=== PATIENT | female | born 1975 | race Caucasian/White ===

== ENCOUNTER → 2018-07-08 10:14 | Outpatient (CLI) | payer BC, SELFPAY ==
[2018-07-10 16:20] LABS: H. pylori Breath Test Negative (Negative)
== END ==
PROVIDERS: Visit Provider Physician Assistant
DX: R10.13 Epigastric pain (principal)
CPT/HCPCS: 83013

== ENCOUNTER → 2018-07-14 09:40 | Outpatient (CLI) | payer BC, SELFPAY ==
--- NOTE | 2018-07-14 09:45 | US_ITS ---
US abdomen limited History:Nausea, reflux, belching, pain Ordering Physician:Robert Campuzano MD Patient Age: 43 years Comparison:None Findings: Pancreas:Unremarkable. No obvious mass or abnormal fluid collection. No ductal dilatation Liver:No focal liver lesions demonstrated. Homogeneous echogenicity. No intrahepatic biliary ductal dilatation evident Right Kidney:Unremarkable. Normal size and echogenicity. No hydronephrosis Gallbladder:No gallstones, gallbladder wall thickening, pericholecystic fluid, or biliary dilatation. Impression:Negative gallbladder/right upper quadrant ultrasound
== END ==
PROVIDERS: PCP Family Medicine; Visit Provider Family Medicine
DX: R10.11 Right upper quadrant pain (principal)
CPT/HCPCS: 76705

== ENCOUNTER → 2018-08-17 10:13 | Outpatient (CLI) | payer BC, SELFPAY ==
--- NOTE | 2018-08-17 10:20 | NM_ITS ---
NM hepatobiliary wo pharm HISTORY: Right upper quadrant pain ITS.REASON: RUQ PAIN ORDERING PHYSICIAN: Radha Collins PATIENT AGE: 43 years COMPARISON: 07/14/2018 DOSE: 8.47 MCI TC Choletec INJ into RT ANT Fatty Meal Ensure FINDINGS: Homogeneous activity is present within the hepatic parenchyma. Activity is present in the gallbladder by 10 minutes. Activity is present in the small bowel by the fatty meal ingestion. The gallbladder ejection fraction is calculated to be 66% The patient did not report pain or other symptoms during fatty meal. IMPRESSION: Unremarkable hepatobiliary scan and gallbladder ejection fraction. No evidence of common or cystic duct obstruction with normal gallbladder ejection fraction
--- NOTE | 2018-08-17 10:35 | HMH.ITSHM ---
Current Home Medications as stated by this patient Angelic Grant or risk control representative. []LEXAPRO TROYTEC
== END ==
PROVIDERS: PCP Family Medicine; Visit Provider Nurse Practitioner Acute Care
DX: R10.11 Right upper quadrant pain (principal)
CPT/HCPCS: 78226; A9537

== ENCOUNTER → 2019-04-24 15:59 | Outpatient (CLI) | payer BC, SELFPAY ==
--- NOTE | 2019-04-24 16:09 | MM_ITS ---
PROCEDURE: MM DIG SCREENING MAMM BI W/CAD Patient Age:43Y CLINICAL INDICATION: Routine Screening Mammogram 43-year-old. No hormones no new complaints Family history: Mother with breast cancer age 47 COMPARISON: [facility] DIGITAL MAMM-SCREEN BILATERAL from 09/14/2010 [facility] DIG MAMM-SCREEN DEMI from 02/19/2013 [facility]B DIG MAMM-SCREEN DEMI from 02/13/2015 [facility]B DIG MAMM-SCREEN DEMI W/CAD from 08/27/2016 TECHNIQUE: Standard CC and MLO images were obtained. R2 CAD reviewed. Additional axillary CC views included bilaterally FINDINGS: . Heterogeneous moderately dense breast bilaterally.. Mammography somewhat limited breast of this carried however similar architecture and fibroglandular pattern to previous studies;. No new suspicious nor dominant mass. No suspicious calcifications.. CAD highlights no new areas of concern either. Bilateral follow-up 1 year recommended IMPRESSION: Stable mammogram. No new findings of significant concern Bilateral follow-up 1 year recommended Moderately dense breast BI-RAD Category: 2 Benign Finding(s) FOLLOW-UP: 1YR 1 Year Follow-up (A letter has been sent to the patient regarding results of the study.) Dictated by: Efren Champagne MD 04/27/2019 08:55 Signed by: <Electronically signed by Efren Champagne MD in [place]> 04/27/2019 08:55
== END ==
PROVIDERS: PCP Family Medicine; Visit Provider Nurse Practitioner Obstetrics & Gynecology
DX: Z12.31 Encounter for screening mammogram for malignant neoplasm of breast (principal)
CPT/HCPCS: 77067

== ENCOUNTER → 2021-02-20 13:27 | Outpatient (CLI) | payer BC, SELFPAY ==
--- NOTE | 2021-02-20 13:29 | MM_ITS ---
PROCEDURE INFORMATION: Exam: MG Screening 3D Mammography Exam date and time: 02/20/2021 1:29 PM Age: 45 years old Clinical indication: Encounter for screening mammogram for malignant neoplasm of breast TECHNIQUE: Imaging protocol: Screening tomosynthesis and 2D mammography including computer-aided detection (CAD) when performed. COMPARISON: 1. MG MM DIG SCREENING MAMM BI W/CAD 04/24/2019 4:26 PM 2. MG DMSB DIG MAMM-SCREEN DEMI W/CAD 08/27/2016 1:14 PM FINDINGS: MAMMOGRAPHY: Breast composition: The breast tissue is heterogeneously dense, which may obscure small masses. Mass: None. Architectural distortion: None. Calcifications: No suspicious calcifications. Asymmetric density: None. Skin thickening: None. Axillary adenopathy: None. IMPRESSION: No mammographic evidence of malignancy. Annual screening is recommended unless otherwise clinically indicated. ASSESSMENT: BI-RADS Category 1: Negative
== END ==
PROVIDERS: PCP Family Medicine; Visit Provider Family Medicine
DX: Z12.31 Encounter for screening mammogram for malignant neoplasm of breast (principal)
CPT/HCPCS: 77063; 77067

== ENCOUNTER → 2021-06-12 13:03 | Outpatient (CLI) | payer BC, SELFPAY ==
--- NOTE | 2021-06-12 13:19 | CT_ITS ---
PROCEDURE: CT ABDOMEN PELVIS WO/W CON CLINICAL INDICATION: ACUTE CYSTITIS W/ HEMATURIA, LT FLANK PAIN COMPARISON: CT ABDPELW CT ABD PELVIS W/ CONTRAST from 07/20/2013 TECHNIQUE: IV Contrast: 75ML Isovue 370 Oral Contrast None Axial images obtained with sagittal and coronal reformats. All CT scans at the facility use one or more dose reduction, viz: automated exposure control, ma/kV adjustment per patient size (including targeted exams where dose is matched to indication, i.e. head), or iterative reconstruction technique. FINDINGS: LOWER THORAX: No acute finding ABDOMEN & PELVIS: There are few scattered small hepatic hypodensities possibly due to cysts. Gallbladder is contracted and mildly thickened wall. The spleen, adrenal glands, and pancreas have an unremarkable appearance. No renal or ureteral calculi. No hydronephrosis. The kidneys demonstrate symmetric enhancement with no evidence of pyelonephritis. No bladder calculi. There is extensive amount of retained colonic feces throughout the colon with mild colonic distension.. The colon measures up to 5 mm in diameter in the transverse colon region no evidence of small-bowel obstruction. No free air apparent. No evidence of appendicitis. IMPRESSION: 1. No renal or ureteral calculi. No evidence of pyelonephritis. 2. Extensive amount of retained colonic feces throughout the colon. Dictated by: Jef Arce MD 06/12/2021 15:17 Jef Arce MD in [place] 06/12/2021 15:17
== END ==
PROVIDERS: PCP Family Medicine; Visit Provider Nurse Practitioner
DX: R10.9 Unspecified abdominal pain (principal); N30.01 Acute cystitis with hematuria
CPT/HCPCS: 74178; Q9967

== ENCOUNTER → 2021-06-18 08:18 | Outpatient (CLI) | payer BC, SELFPAY ==
--- NOTE | 2021-06-18 08:33 | US_ITS ---
PROCEDURE: US ABDOMEN LIMITED CLINICAL INDICATION: ABN CT GB,RT SHOULDER PAIN COMPARISON: US ABDLM US abdomen limited from 07/14/[address] ABDOMEN PELVIS WO/W CON from 06/12/2021 FINDINGS: PANCREAS: Unremarkable. No obvious mass or abnormal fluid collection. No ductal dilatation LIVER: No focal liver lesions demonstrated. Homogeneous echogenicity. No intrahepatic biliary ductal dilatation evident. There is appropriate direction of blood flow within a non dilated portal vein RIGHT KIDNEY: Unremarkable. Normal size and echogenicity. No hydronephrosis GALLBLADDER: No gallstones, gallbladder wall thickening, pericholecystic fluid, or biliary dilatation. IMPRESSION: Unremarkable limited abdominal ultrasound as detailed above disc Dictated by: Jef Arce MD 06/18/2021 16:34 Jef Arce MD in [place] 06/18/2021 16:34
== END ==
PROVIDERS: PCP Family Medicine; Visit Provider Nurse Practitioner
DX: R93.2 Abnormal findings on diagnostic imaging of liver and biliary tract (principal); M25.511 Pain in right shoulder
CPT/HCPCS: 76705

== ENCOUNTER → 2021-06-29 06:53 | Outpatient (CLI) | payer BC, SELFPAY ==
--- NOTE | 2021-06-29 06:59 | NM_ITS ---
PROCEDURE: NM HEPATOBILIARY WO PHARM CLINICAL INDICATION: ABNORMAL CT Abdominal pain COMPARISON: No exams were available for comparison TECHNIQUE: DOSE: 8.09 mCi technetium Choletec. Fatty meal was given with Ensure FINDINGS: Homogeneous activity is present within the hepatic parenchyma. Activity is present in the gallbladder by 5 minutes Activity is present in the small bowel by 60 minutes. The gallbladder ejection fraction is calculated to be 89 percent. No pain reported with fatty meal ingestion. Images submitted shows no obvious reflux into the stomach IMPRESSION: Unremarkable a hepatobiliary scan. Normal gallbladder ejection fraction Dictated by: Jef Arce MD 06/29/2021 16:56 Jef Arce MD in [place] 06/29/2021 16:56
== END ==
LOC: RAD 06:54
PROVIDERS: PCP Family Medicine; Visit Provider Nurse Practitioner
DX: R93.2 Abnormal findings on diagnostic imaging of liver and biliary tract (principal)
CPT/HCPCS: 78226; A9537

== ENCOUNTER → 2022-03-15 10:26 | Outpatient (CLI) | payer BC, SELFPAY ==
--- NOTE | 2022-03-15 10:26 | MM_ITS ---
PROCEDURE INFORMATION: Exam: MG Bilateral Screening 3D Mammography Exam date and time: 03/15/2022 10:18 AM Age: 46 years old Clinical indication: Screening mammogram. Family history of breast cancer in mother; Mother's age: 47 years TECHNIQUE: Imaging protocol: Bilateral Screening tomosynthesis and 2D mammography including computer-aided detection (CAD) when performed. COMPARISON: 1. MG MM DIG SCREENING MAMM BI W/CAD 02/20/2021 1:29 PM 2. MG MM DIG SCREENING MAMM BI W/CAD 04/24/2019 4:26 PM 3. MG DMSB DIG MAMM-SCREEN DEMI W/CAD 08/27/2016 1:14 PM 4. MG DMSB DIG MAMM-SCREEN DEMI 02/13/2015 5:12 PM FINDINGS: MAMMOGRAPHY: Breast composition: The breast is heterogeneously dense, which may obscure small masses. Mass: None. Architectural distortion: No new or suspicious architectural distortion. Calcifications: No new or suspicious calcifications are present Asymmetric density: No new or suspicious asymmetric density is present Skin thickening: None. Axillary adenopathy: None. IMPRESSION: No mammographic evidence of malignancy. Recommend annual screening mammography unless otherwise clinically indicated. ASSESSMENT: BI-RADS category 1: Negative
== END ==
PROVIDERS: PCP Family Medicine; Visit Provider Obstetrics & Gynecology
DX: Z12.31 Encounter for screening mammogram for malignant neoplasm of breast (principal)
CPT/HCPCS: 77063; 77067

== ENCOUNTER → 2022-05-06 06:55 | Outpatient (CLI) | payer BC, SELFPAY | PROVIDERS: PCP Nurse Practitioner; Visit Provider Nurse Practitioner | DX: L03.116 Cellulitis of left lower limb (principal); L02.612 Cutaneous abscess of left foot ==

== ENCOUNTER → 2022-05-06 16:27 | Outpatient (CLI) | payer BC, SELFPAY ==
--- NOTE | 2022-05-06 16:31 | XR_ITS ---
PROCEDURE INFORMATION: Exam: XR Left Foot Exam date and time: 05/06/22 04:38 PM Age: 46 years old Clinical indication: Pain; Foot; Left; Additional info: Cellulitis and abscess left medial foot 1st mtp jordana TECHNIQUE: Imaging protocol: Radiologic exam of the Left foot. Views: 1 or 2 views. COMPARISON: No relevant prior studies available. FINDINGS: Bones/joints: Small erosion at the proximal phalanx of the left great toe medially, concern for gout versus osteomyelitis. Consider elective MRI for further characterization. Soft tissues: Soft tissue swelling. No calcifications. IMPRESSION: Small erosion at the proximal phalanx of the left great toe medially, concern for gout versus osteomyelitis. Consider elective MRI for further characterization.
== END ==
LOC: RAD 16:28
PROVIDERS: PCP Family Medicine; Visit Provider Nurse Practitioner
DX: L02.612 Cutaneous abscess of left foot (principal); L03.116 Cellulitis of left lower limb
CPT/HCPCS: 73620; 87070; 87077; 87205

== ENCOUNTER 2022-05-06 21:45 | Emergency (ER) | payer BC, SELFPAY ==
[2022-05-06 21:47] VITALS: BP 148/85; PULSE 80; RESP 14; TEMP 36.9; O2SAT 100; BMI 19.5
[2022-05-06 22:07] LABS: Microscopic, Urine URINE MICROSCOPIC (MICROSCOPIC)
--- NOTE | 2022-05-06 22:27 | PC.NURSE ---
at speaking with pt about POC
--- NOTE | 2022-05-06 22:28 | HMH.EDGENADL ---
Discharge Plan Disposition Patient Disposition: Home, Self-Care Chief Complaint: PAIN Prescriptions Prescriptions: No Action Zyrtec 10 mg capsule 10 mg PO DAILY PRN Linzess 145 mcg capsule 145 mcg PO DAILY Qty: 30 11RF duloxetine 60 mg capsule,delayed release(DR/EC) 60 mg PO DAILY clindamycin HCl 300 mg capsule 300 mg PO TID Qty: 30 0RF Referrals Follow up/Referrals: Amish Fnuk MD [Primary Care Provider] - See instructions Clinical Impressions Clinical Impression: Cellulitis Instructions Patient Instructions: Cellulitis Discharge ED Provider: Yasir Marcial General Adult HPI General Chief complaint: PAIN Stated complaint: pain on left foot Time Seen by Provider: 05/06/22 22:28 Mode of Arrival: Ambulatory Source of Information: Patient and Medical Record Limitations: No Limitations Description of Symptoms (Recalled from ER Triage Doc. by RN): Pt c/o pain and swelling to a blister on her left foot. She was seen by her PCP today and had an xray of left foot as well as started on clinda. pt denies any drainage from site. History of Present Illness HPI narrative: pt with reddness and swelling lt foot - saw by pcp today and had xray and started on abx - no drainage - feels not well but denied fever Onset (ago): hour(s) Location: lower extremity Severity: moderate Associated symptoms: malaise Treatments prior to arrival: other (antibiotics ) Related Data Home Medications Medication Instructions Recorded Confirmed cetirizine 10 mg capsule (Zyrtec) 10 mg PO DAILY PRN 06/29/21 05/06/22 duloxetine 60 mg capsule,delayed 60 mg PO DAILY 05/06/22 05/06/22 release Previous Rx's Medication Instructions Recorded linaclotide 145 mcg capsule 145 mcg PO DAILY #30 caps 06/29/21 (Linzess) clindamycin HCl 300 mg capsule 300 mg PO TID #30 caps 05/06/22 Allergies Allergy/AdvReac Type Severity Reaction Status Date / Time erythromycin base Allergy Mild hives Verified 05/06/22 15:21 [facility] Medical History (Updated 05/07/22 @ 00:46 by Yasir Marcial MD) Anxiety Family History (Updated 05/06/22 @ 15:24 by Harriet Gardner) Cancer Hypertension Social History Smoking Status: Never smoker alcohol intake: never substance use type: denies use current occupational status: employed Travel in the last 8 weeks: None ROS Obtained: Yes All systems reviewed & no additional complaints except as documented Constitutional Constitutional: Denies fever(s) Musculoskeletal Musculoskeletal: Reports arthralgias Integumentary/Breasts Skin/Breast: Reports as per HPI Physical Exam General General appearance: alert and in no apparent distress Head Head exam: normocephalic Eye Eye exam: Present PERRL and EOMI ENT ENT exam: Present mucous membranes moist Neck Neck exam: Present trachea midline Respiratory Respiratory exam: Present normal lung sounds bilaterally; Absent respiratory distress Cardiovascular Cardiovascular exam: Present regular rate Abdominal Exam Abdominal exam: Present soft Expanded Lower Extremity Exam Left: Foot/toe exam: Present tenderness, swelling and erythema; Absent full ROM Neurological Exam Neurological exam: Present alert, oriented X3 and CN II-XII intact Psychiatric Psychiatric exam: Present normal affect Skin Skin exam: Present erythema and other (cellulitiis changes lt great toe ) Medical Decision Making Medical Records Medical records reviewed: Yes I reviewed the patient's medical records. Celestine Inquiry Pt receiving controlled substance: No Vital Signs: 05/06/22 21:47 Temperature 98.4 F Temperature Source Oral Pulse Rate [Right Radial] 80 Respiratory Rate 14 Blood Pressure [Right Arm] 148/85 H Blood Pressure Mean [Right Arm] 106 Blood Pressure Source [Right Arm] Automatic Cuff Blood Pressure Position [Right Arm] Sitting 02 Sat by Pulse Oximetry 100 Ox
[2022-05-06 22:31] LABS: Appearance,Urine CLEAR (Clear); Bilirubin,Urine Negative (Negative); Blood, Urine Negative (Negative); Color,Urine YELLOW (Yellow); Glucose,Urine (UA) Negative (Negative); Ketones,Urine Negative (Negative); Leukocyte Esterase,Urine Negative (Negative); Nitrate,Urine Negative (Negative); PH,Urine 5.5 (5.0-8.5); Protein,Urine Negative (Negative); Urobilinogen,Urine 0.2 EU/dl (0.2)
[2022-05-06 22:32] LABS: Bacteria,Urine Trace /lpf
--- NOTE | 2022-05-06 22:52 | CT_ITS ---
PROCEDURE INFORMATION: Exam: CT Left Lower Extremity Without Contrast, Foot Exam date and time: 05/06/22 10:55 PM Age: 46 years old Clinical indication: Other: Swelling, redness; Additional info: Questionable osteomyelitis, left 1st digit TECHNIQUE: Imaging protocol: CT of the Left lower extremity without contrast was performed. Exam focused on the foot. Radiation optimization: All CT scans at this facility use at least one of these dose optimization techniques: automated exposure control; mA and/or kV adjustment per patient size (includes targeted exams where dose is matched to clinical indication); or iterative reconstruction. COMPARISON: CR XR FOOT LT 2V 05/06/22 04:38 PM FINDINGS: Bones/joints: Erosions at the 1st MTP joint, both the 1st metatarsal head and the proximal phalanx of the great toe medially. No CT evidence of osteomyelitis. Soft tissues: Normal. IMPRESSION: 1. Erosions at the 1st MTP joint, both the 1st metatarsal head and the proximal phalanx of the great toe medially. 2. No CT evidence of osteomyelitis. 3. Consider elective MRI with contrast if strong clinical suspicion of osteomyelitis persists.
--- NOTE | 2022-05-06 22:57 | PC.NURSE ---
Spoke with Marguerite at [facility] and she is entering [facility] dosing
[2022-05-06 23:03] LABS: Alanine Aminotransferase 16 U/L (12-78); Albumin Level 4.3 g/dl (3.5-5.0); Albumin/Globulin Ratio 1.6 (1.1-1.8); Alkaline Phosphatase 110 U/L (38-126); Aspartate Amino Transferase 41 U/L (14-36); Blood Urea Nitrogen 18 mg/dl (7-17); Calcium 8.8 mg/dl (8.4-10.2); Carbon Dioxide 30 mmol/L (22.0-30.0); Chloride 107 mmol/L (98-107); Creatinine Clearance Estimated 83 mL/min (50-200); Estimated Glomerular Filt Rate 90 ml/min (>60); GFR (African American) 109 ML/MIN (>60); Globulin 2.7 g/dL (1.3-3.2); Glucose 72 mg/dl (74-100); Sodium 142 mmol/L (136-145)
[2022-05-06 23:08] LABS: C-Reactive Protein 6.5 mg/L (0-4)
[2022-05-06 23:09] LABS: Basophils # 0.1 K/mm3 (0-0.2); Basophils % 1.8 % (0.1-2.0); Bilirubin,Total 0.1 mg/dl (0.2-1.3); Eosinophils # 0.2 K/mm3 (0.0-0.4); Eosinophils % 4.1 % (0.1-12.0); Hematocrit 39.6 % (37.0-47.0); Lactic Acid < 0.5 mmol/L (0.7-2.1); Lymphocytes # 2.6 K/mm3 (0.7-4.5); Lymphocytes % 42.7 % (10-50); Mean Corpuscular HGB Conc 32.9 g/dL (31.8-35.4); Mean Corpuscular Hemoglobin 32.2 pg (27.0-31.2); Mean Corpuscular Volume 97.7 fl (81-99); Mean Platelet Volume 7.6 fl (7.4-10.4); Monocytes # 0.4 K/mm3 (0.1-1.0); Monocytes % 6.4 % (1.7-9.3); Neutrophils # 2.7 K/mm3 (1.8-7.8); Platelet Count 295 K/mm3 (142-424); Red Blood Count 4.05 M/mm3 (4.20-5.40); Red Cell Distribution Width 12.9 % (11.5-17.5)
[2022-05-06 23:44] LABS: Erythrocyte Sedimentation Rate 15 mm/hr (0-20)
--- NOTE | 2022-05-06 23:49 | PC.NURSE ---
Rounded on pt. No needs or complaints voiced. Call light within reach.
[2022-05-07 02:08] VITALS: BP 114/70; PULSE 66; RESP 16; TEMP 36.6; O2SAT 99
== END 2022-05-07 02:16 | disposition home or self-care (01) ==
PROVIDERS: Emergency Provider Emergency Medicine; PCP Family Medicine
DX: L03.116 Cellulitis of left lower limb; Z88.1 Allergy status to other antibiotic agents; Z79.899 Other long term (current) drug therapy
CPT/HCPCS: 73700; 80053; 81001; 83605; 85025; 85651; 86140; 87040; 96365; 96366; 99284; J3370

== ENCOUNTER → 2022-07-21 08:50 | Outpatient (CLI) | payer BC, SELFPAY ==
[2022-07-21 17:46] LABS: Adenovirus,PCR Not Detected (NotDetected); Coronavirus 229E Not Detected (NotDetected); Coronavirus NL63 Not Detected (NotDetected); Coronavirus OC43 Not Detected (NotDetected); Coronovirus HKU1,PCR Not Detected (NotDetected); Human Metapneumovirus Not Detected (NotDetected); Influenza A, PCR Not Detected (NotDetected); Influenza AH1, 2009 Not Detected (NotDetected); Influenza AH1, PCR Not Detected (NotDetected); Rhinovirus/Enterovirus Not Detected (NotDetected)
[2022-07-21 17:47] LABS: Bordetella Pertussis Not Detected (NotDetected); Chlamydophila Pneumoniae, PCR Not Detected (NotDetected); Influenza AH3,PCR Not Detected (NotDetected); Influenza B, PCR Not Detected (NotDetected); Mycoplasma Pneumoniae, PCR Not Detected (NotDetected); Parainfluenza 1, PCR Not Detected (NotDetected); Parainfluenza 2, PCR Not Detected (NotDetected); Parainfluenza 3, PCR Not Detected (NotDetected); Parainfluenza 4, PCR Not Detected (NotDetected); Respiratory Syncytial Virus Not Detected (NotDetected)
[2022-07-21 18:00] LABS: Basophils # 0.1 K/mm3 (0-0.2); Basophils % 2.5 % (0.1-2.0); Eosinophils # 0.1 K/mm3 (0.0-0.4); Eosinophils % 2.2 % (0.1-12.0); Hematocrit 42.9 % (37.0-47.0); Hemoglobin 13.7 g/dL (12.2-16.2); Lymphocytes # 1.4 K/mm3 (0.7-4.5); Lymphocytes % 34.3 % (10-50); Mean Corpuscular HGB Conc 31.9 g/dL (31.8-35.4); Mean Corpuscular Hemoglobin 31.3 pg (27.0-31.2); Monocytes # 0.3 K/mm3 (0.1-1.0); Monocytes % 6.4 % (1.7-9.3); Neutrophils # 2.3 K/mm3 (1.8-7.8); Neutrophils % 54.6 % (37.0-80.0); Platelet Count 295 K/mm3 (142-424); Red Blood Count 4.38 M/mm3 (4.20-5.40); Red Cell Distribution Width 12.7 % (11.5-17.5); White Blood Count 4.2 K/mm3 (4.8-10.8)
[2022-07-21 18:51] LABS: Alanine Aminotransferase 16 U/L (12-78); Albumin Level 4.3 g/dl (3.5-5.0); Albumin/Globulin Ratio 1.7 (1.1-1.8); Alkaline Phosphatase 114 U/L (38-126); Anion Gap 19.3 mEq/L (5-15); Aspartate Amino Transferase 30 U/L (14-36); Bilirubin,Total 0.3 mg/dl (0.2-1.3); Blood Urea Nitrogen 13 mg/dl (7-17); Calcium 9.6 mg/dl (8.4-10.2); Carbon Dioxide 30 mmol/L (22.0-30.0); Chloride 98 mmol/L (98-107); Estimated Glomerular Filt Rate 89 ml/min (>60); GFR (African American) 108 ML/MIN (>60); Globulin 2.5 g/dL (1.3-3.2); Glucose 92 mg/dl (74-100); Potassium 4.3 mmoL/L (3.5-5.1); Sodium 143 mmol/L (136-145); Total Protein,Serum 6.8 g/dl (6.3-8.2); Uric Acid 3.2 mg/dl (2.5-6.2)
[2022-07-21 19:49] LABS: Erythrocyte Sedimentation Rate 22 mm/hr (0-20)
[2022-07-22 01:22] LABS: Coronavirus 19, PCR Detected (NotDetected)
[2022-07-23 17:38] LABS: Anti-Centromere B Antibodies <0.2 AI (0.0-0.9); Anti-DNA (DS) Ab Qn 1 IU/mL (0-9); Anti-Jo-1 <0.2 AI (0.0-0.9); Anti-Smith Antibody <0.2 AI (0.0-0.9); Antichromatin Antibodies <0.2 AI (0.0-0.9); Antiscleroderma-70 Antibodies <0.2 AI (0.0-0.9); RA Latex Turbid. <10.0 IU/mL (<14.0); RNP Antibodies <0.2 AI (0.0-0.9); Sjogren's Anti-SS-A <0.2 AI (0.0-0.9); Sjogren's Anti-SS-B <0.2 AI (0.0-0.9)
[2022-07-23 19:59] LABS: EBV Ab VCA, IgG >600.0 U/mL (0.0-17.9); EBV Ab VCA, IgM <36.0 U/mL (0.0-35.9)
[2022-07-24 05:04] LABS: Cytomegalovirus (CMV) Ab, IgG <0.60 U/mL (0.00-0.59); Cytomegalovirus (CMV) Ab, IgM <30.0 AU/mL (0.0-29.9)
[2022-08-01 23:26] LABS: Antinuclear Antibodies, IFA POSITIVE
== END ==
LOC: LAB.DROPOF 07-23 07:21
PROVIDERS: PCP Nurse Practitioner; Visit Provider Nurse Practitioner
DX: U07.1 COVID-19 (principal); J06.9 Acute upper respiratory infection, unspecified; R53.83 Other fatigue
CPT/HCPCS: 80053; 84550; 85025; 85651; 86038; 86225; 86235; 86431; 86644; 86645; 86664; 86665; 87581; 87632; 87798; C9803; U0003; U0005

== ENCOUNTER → 2022-10-25 20:32 | Outpatient (CLI) | payer BC, SELFPAY | PROVIDERS: PCP Nurse Practitioner; Visit Provider Nurse Practitioner | DX: R10.9 Unspecified abdominal pain (principal) | CPT/HCPCS: 87086 ==

== ENCOUNTER → 2022-11-23 13:31 | Outpatient (CLI) | payer BC, SELFPAY ==
[2022-11-23 18:57] LABS: Adenovirus,PCR Not Detected (NotDetected); Bordetella Pertussis Not Detected (NotDetected); Chlamydophila Pneumoniae, PCR Not Detected (NotDetected); Coronavirus 19, PCR Not Detected (NotDetected); Coronavirus 229E Not Detected (NotDetected); Coronavirus NL63 Not Detected (NotDetected); Coronavirus OC43 Not Detected (NotDetected); Coronovirus HKU1,PCR Not Detected (NotDetected); Human Metapneumovirus Not Detected (NotDetected); Influenza A, PCR Not Detected (NotDetected); Influenza AH1, 2009 Not Detected (NotDetected); Influenza AH1, PCR Not Detected (NotDetected); Influenza AH3,PCR Not Detected (NotDetected); Influenza B, PCR Not Detected (NotDetected); Mycoplasma Pneumoniae, PCR Not Detected (NotDetected); Parainfluenza 1, PCR Not Detected (NotDetected); Parainfluenza 2, PCR Not Detected (NotDetected); Parainfluenza 3, PCR Not Detected (NotDetected); Parainfluenza 4, PCR Not Detected (NotDetected); Respiratory Syncytial Virus Not Detected (NotDetected); Rhinovirus/Enterovirus Not Detected (NotDetected)
[2022-11-23 19:19] LABS: Basophils # 0.1 K/mm3 (0-0.2); Eosinophils # 0.2 K/mm3 (0.0-0.4); Hematocrit 40.9 % (37.0-47.0); Hemoglobin 13.2 g/dL (12.2-16.2); Lymphocytes % 36.3 % (10-50); Mean Corpuscular HGB Conc 32.3 g/dL (31.8-35.4); Mean Corpuscular Hemoglobin 30.8 pg (27.0-31.2); Mean Corpuscular Volume 95.6 fl (81-99); Mean Platelet Volume 8.1 fl (7.4-10.4); Monocytes # 0.3 K/mm3 (0.1-1.0); Monocytes % 5.8 % (1.7-9.3); Neutrophils # 2.9 K/mm3 (1.8-7.8); Neutrophils % 53.9 % (37.0-80.0); Platelet Count 299 K/mm3 (142-424); Red Blood Count 4.28 M/mm3 (4.20-5.40); Red Cell Distribution Width 13.1 % (11.5-17.5); White Blood Count 5.4 K/mm3 (4.8-10.8)
== END ==
PROVIDERS: PCP Nurse Practitioner; Visit Provider Nurse Practitioner
DX: J06.9 Acute upper respiratory infection, unspecified (principal)
CPT/HCPCS: 85025; 87581; 87632; 87798; C9803; U0003; U0005

== ENCOUNTER → 2023-02-10 11:20 | Outpatient (CLI) | payer BC, SELFPAY | PROVIDERS: PCP Nurse Practitioner; Visit Provider Nurse Practitioner | DX: R30.0 Dysuria (principal) | CPT/HCPCS: 87086 ==

== ENCOUNTER → 2023-03-29 10:49 | Outpatient (CLI) | payer BC, SELFPAY ==
--- NOTE | 2023-03-29 10:52 | MM_ITS ---
PROCEDURE INFORMATION: Exam: MG Bilateral Screening 3D Mammography Exam date and time: 03/29/2023 10:54 AM Age: 47 years old Clinical indication: Screening examination; Family history of breast cancer in mother; Mother's age: 47 years TECHNIQUE: Imaging protocol: Bilateral Screening tomosynthesis and 2D mammography including computer-aided detection (CAD) when performed. COMPARISON: 1. MG MM DIG SCREENING MAMM BI W/CAD 03/15/2022 10:18 AM 2. MG MM DIG SCREENING MAMM BI W/CAD 02/20/2021 1:29 PM 3. MG MM DIG SCREENING MAMM BI W/CAD 04/24/2019 4:26 PM 4. MG DMSB DIG MAMM-SCREEN DEMI W/CAD 08/27/2016 1:14 PM FINDINGS: MAMMOGRAPHY: Breast composition: The breasts are heterogeneously dense, which may obscure small masses. Mass: None. Architectural distortion: None. Calcifications: No suspicious calcifications. Asymmetric density: None. Skin thickening: None. Axillary adenopathy: None. IMPRESSION: No mammographic evidence of malignancy. Annual screening is recommended unless otherwise clinically indicated. Given the reported risk factors coupled with the patient's breast density, a breast cancer risk assessment may prove useful for further evaluation. ASSESSMENT: BI-RADS Category 1: Negative
== END ==
PROVIDERS: PCP Nurse Practitioner; Visit Provider Nurse Practitioner
DX: Z12.31 Encounter for screening mammogram for malignant neoplasm of breast (principal)
CPT/HCPCS: 77063; 77067

== ENCOUNTER 2024-01-31 15:47 | Outpatient (CLI) | payer BC, SELFPAY ==
[2024-01-31 18:14] LABS: Basophils # 0.1 K/mm3 (0-0.2); Basophils % 0.9 % (0.1-2.0); Eosinophils # 0.2 K/mm3 (0.0-0.4); Eosinophils % 2.6 % (0.1-12.0); Hematocrit 42.8 % (37.0-47.0); Hemoglobin 13.7 g/dL (12.2-16.2); Lymphocytes # 1.9 K/mm3 (0.7-4.5); Lymphocytes % 27.8 % (10-50); Mean Corpuscular HGB Conc 32.2 g/dL (31.8-35.4); Mean Corpuscular Volume 99.4 fl (81-99); Mean Platelet Volume 8.5 fl (7.4-10.4); Monocytes # 0.3 K/mm3 (0.1-1.0); Neutrophils # 4.3 K/mm3 (1.8-7.8); Neutrophils % 64.7 % (37.0-80.0); Platelet Count 324 K/mm3 (142-424); Red Cell Distribution Width 13.1 % (11.5-17.5); White Blood Count 6.6 K/mm3 (4.8-10.8)
[2024-01-31 18:49] LABS: Alanine Aminotransferase 21 U/L (12-78); Albumin Level 4.3 g/dl (3.5-5.0); Albumin/Globulin Ratio 1.7 (1.1-1.8); Alkaline Phosphatase 103 U/L (38-126); Aspartate Amino Transferase 34 U/L (14-36); Bilirubin,Total 0.6 mg/dl (0.2-1.3); Blood Urea Nitrogen 15 mg/dl (7-17); Calcium 9.7 mg/dl (8.4-10.2); Carbon Dioxide 30 mmol/L (22.0-30.0); Chloride 103 mmol/L (98-107); Chol/HDL Ratio 3.1 (1-3.5); Cholesterol 180 mg/dl (140-200); Estimated Glomerular Filt Rate 76 ml/min (>60); GFR (African American) 92 ML/MIN (>60); Globulin 2.5 g/dL (1.3-3.2); Glucose 99 mg/dl (74-100); HDL Cholesterol 59 mg/dl (40-60); Sodium 140 mmol/L (136-145); Total Protein,Serum 6.8 g/dl (6.3-8.2); Triglycerides 82 mg/dl (30-150); VLDL Cholesterol 16 mg/dL (0-40)
[2024-01-31 19:01] LABS: Direct LDL Cholesterol 91.92 mg/dL (100-129)
[2024-01-31 19:18] LABS: 25-OH Vitamin D, Total 30.1 ng/mL (30-100)
[2024-01-31 19:21] LABS: Thyroid Stimulating Hormone 0.89 uIU/mL (0.465-4.68)
[2024-01-31 19:32] LABS: Hemoglobin A1C 5.3 % (4.0-6.0)
[2024-01-31 19:40] LABS: Vitamin B12 278 pg/mL (239-931)
[2024-02-02 13:47] LABS: Estradiol <5.0 pg/mL (.); LH 62.1 mIU/mL (.)
[2024-02-05 21:10] LABS: Estrogen 42 pg/mL (.)
== END 2024-01-31 23:59 | disposition home or self-care (01) ==
LOC: LAB.DROPOF 02-01 15:47
PROVIDERS: PCP Nurse Practitioner; Visit Provider Nurse Practitioner
DX: N91.2 Amenorrhea, unspecified (principal); F41.9 Anxiety disorder, unspecified; Z13.1 Encounter for screening for diabetes mellitus; Z13.220 Encounter for screening for lipoid disorders; Z68.1 Body mass index [BMI] 19.9 or less, adult
CPT/HCPCS: 80050; 80053; 80061; 82306; 82607; 82670; 82672; 83001; 83002; 83036; 84443; 85025

== ENCOUNTER 2024-03-30 07:49 | Outpatient (CLI) | payer BC, SELFPAY ==
--- NOTE | 2024-03-30 07:57 | MM_ITS ---
PROCEDURE INFORMATION: Exam: MG Bilateral Screening 3D Mammography Exam date and time: 03/30/2024 7:48 AM Age: 48 years old Clinical indication: Screening examination TECHNIQUE: Imaging protocol: Bilateral Screening tomosynthesis and 2D mammography including computer-aided detection (CAD) when performed. COMPARISON: 1. MG MM DIG SCREENING MAMM BI W/CAD 03/29/2023 10:54 AM 2. MG MM DIG SCREENING MAMM BI W/CAD 03/15/2022 10:18 AM FINDINGS: MAMMOGRAPHY: Breast composition: The breasts are heterogeneously dense, which may obscure small masses. Mass: None. Architectural distortion: None. Calcifications: No suspicious calcifications. Asymmetric density: None. Skin thickening: None. Axillary adenopathy: None. IMPRESSION: No mammographic evidence of malignancy. Annual screening is recommended unless otherwise clinically indicated. ASSESSMENT: BI-RADS Category 1: Negative
== END 2024-03-30 23:59 | disposition home or self-care (01) ==
LOC: RAD 07:50
PROVIDERS: PCP Nurse Practitioner; Visit Provider Nurse Practitioner
DX: Z12.31 Encounter for screening mammogram for malignant neoplasm of breast (principal)
CPT/HCPCS: 77063; 77067

== ENCOUNTER 2024-05-15 14:50 | Outpatient (CLI) | payer BC, SELFPAY | END 2024-05-15 23:59 | disposition home or self-care (01) | LOC: LAB.DROPOF 05-16 12:05 | PROVIDERS: PCP Nurse Practitioner; Visit Provider Nurse Practitioner | DX: N39.0 Urinary tract infection, site not specified (principal) | CPT/HCPCS: 87086 ==

== ENCOUNTER 2025-02-18 10:00 | Outpatient (CLI) | payer BC, SELFPAY ==
--- OUTSIDE RECORDS SUMMARY | 2019-08-09 09:50 | XMS_ITS | Continuity of Care Document ---
Author Organization [facility] o Address [address] [place] [address] Phone Care Team Providers Care Financial Data Analyst Name Role Phone Pedro Pablo MAHARAJ, Kaleb Unavailable Unavailable Allergies, Adverse Reactions, Alerts Substance Reaction Status Criticality tetanus and diphtheria toxoids Active No Information erythromycin base Active No Informa tion Procedures Procedure Date Office/outpatient visit,[facility] 2018 X-ray exam of shoulder, complete 2018 Drain/inject major jointor bursa 2018 Dexamethasone sodium phos Advance Directives Directive Yes / No Effective Date File Name No Information Encounters Encounter Description Practice Location Reason(s) For Visit Diagnoses Date Provider Providers Copied on Encounter Office/outpat ient visit,[facility], [address] [place], [address], [place] tel:[phone] 00 [facility] left shoulder pain (chief complaint) Strain of musc/tend the rotator cuff of left shoulder, init Pedro Pablo Manuel. [address], [address], [place], [place], [id number] , [place]. tel:[phone] Family History Family Member Type Diagnosis Age At Onset No Information Payers Payer name Insurance type Covered alliance party ID Authoriza tion(s) [place] - [id number] Social History Type Description Quantity Date Captured Comments Alcohol Use Details Unknown Caffeine Use Details Unknown Tobacco Use Status Current non-smoker 19 Smoking Status Never smoker Non-Smoking Tobacco Use Details : No Details Available : No Details Available Sex Female Vital Signs Date / Time: Height Weight BMI Pulse Rate Blood Pressure Temperature Respiratory Rate Body Surface Area Head Circumference Head Circ. Percentile Wt./[place]. Percentile BMI percentile Pulse Ox Inhaled Ox 3:38 PM 65.00 in 54.431 kg (120.00 lbs) 19.9 7 kg/m sharon (2) Chief Complaint And Reason For Visit From encounter dated '08/09/2019 13:50'. left shoulder pain (chief complaint). Description: She presents with pain, swelling and stiffness on the left side. Reason For Referral Reason For Referral No Information History Of Present Illness Encounter Date Complaint History Of Prese nt Illness left shoulder pain She presents with pain, swelling and stiffness on the left side. Functional Status Date Functional Assessmen t No Information Instructions Date Instruction Additional Infor mation No Information Assessments Type Assessment Date No Information Patient Care Teams Name Effective Dates (start - stop) Status Members No Information
[2025-02-18 18:22] LABS: Basophils # 0.1 K/mm3 (0-0.2); Basophils % 1.2 % (0.1-2.0); Eosinophils # 0.2 Kmm3 (0.0-0.4); Eosinophils % 4.6 % (0.1-12.0); Hematocrit 39.6 % (37.0-47.0); Hemoglobin 12.8 g/dL (12.2-16.2); Immature Granulocytes # 0 10^3uL; Immature Granulocytes % 0 %; Lymphocytes # 1.5 K/mm3 (0.7-4.5); Lymphocytes % 35.7 % (10-50); Mean Corpuscular HGB Conc 32.3 g/dL (31.8-35.4); Mean Corpuscular Hemoglobin 31.1 pg (27.0-31.2); Mean Corpuscular Volume 96.4 fl (81-99); Mean Platelet Volume 9.8 fl (7.4-10.4); Monocytes # 0.3 K/mm3 (0.1-1.0); Monocytes % 6.3 % (1.7-9.3); Neutrophils # 2.2 K/mm3 (1.8-7.8); Neutrophils % 52.2 % (37.0-80.0); Nucleated Red Blood Cells # 0 10^3/uL; Nucleated Red Blood Cells % 0 %; Platelet Count 314 K/mm3 (142-424); Red Blood Count 4.11 M/mm3 (4.20-5.40); Red Cell Distribution Width 12.9 % (11.5-17.5); Red Cell Distribution Width-SD 45.6 fL; White Blood Count 4.1 K/mm3 (4.8-10.8)
[2025-02-18 18:53] LABS: Alanine Aminotransferase 16 U/L (12-78); Albumin Level 4.1 g/dl (3.5-5.0); Albumin/Globulin Ratio 1.6 (1.1-1.8); Alkaline Phosphatase 102 U/L (38-126); Anion Gap 5.4 mEq/L (5-15); Aspartate Amino Transferase 29 U/L (14-36); Bilirubin,Total 0.6 mg/dl (0.2-1.3); Blood Urea Nitrogen 13 mg/dl (7-17); Calcium 9.9 mg/dl (8.4-10.2); Carbon Dioxide 29 mmol/L (22.0-30.0); Chloride 108 mmol/L (98-107); Chol/HDL Ratio 2.7 (1-3.5); Cholesterol 164 mg/dl (140-200); Estimated Glomerular Filt Rate 76 ml/min (>60); GFR (African American) 92 ML/MIN (>60); Globulin 2.5 g/dL (1.3-3.2); Glucose 96 mg/dl (74-100); HDL Cholesterol 61 mg/dl (40-60); Potassium 4.4 mmoL/L (3.5-5.1); Sodium 138 mmol/L (136-145); Total Protein,Serum 6.6 g/dl (6.3-8.2); Triglycerides 65 mg/dl (30-150); VLDL Cholesterol 13 mg/dL (0-40)
[2025-02-18 19:02] LABS: Hemoglobin A1C 6.5 % (4.0-6.0)
[2025-02-18 19:07] LABS: Direct LDL Cholesterol 75.44 mg/dL (100-129)
[2025-02-18 19:11] LABS: 25-OH Vitamin D, Total 28.8 ng/mL (30-100)
[2025-02-18 19:24] LABS: Thyroid Stimulating Hormone 0.32 uIU/mL (0.465-4.68)
[2025-02-18 19:33] LABS: HIV Combo NEGATIVE (Negative)
[2025-02-18 19:42] LABS: Hepatitis C Ab Qual. W/ RFX NEGATIVE (Negative)
[2025-02-18 19:43] LABS: Vitamin B12 318 pg/mL (239-931)
[2025-02-20 05:10] LABS: Hepatitis B Surface Antigen Negative (Negative)
--- OUTSIDE RECORDS SUMMARY | 2025-02-20 10:06 | XMS_ITS | Encounter Summary ---
Author Organization [facility] Address [address] [place] [address] Care Team Providers Care Node Js Developer Name Role Phone Antonio Campuzano MD Primary Care Provider [phone] Madhu Martínez DMD Unavailable [phone] Tanya Cotton Unavailable Unavailable Encounter Details Date Type Department Care Team ([facility] st Contact Info) Description 12/04/2020 [facility] [address] [place] [address] Dental, Provider, DDS [facility] [place], [place] [address] Social History Tobacco Use Types Packs/Day Years Used Date Smoking Tobacco: Former Alcohol Use Standard Drinks/Week Comments Yes 0 (1 standard drink = 0.6 oz pur e alcohol) Comments Unknown Sex and Gender Information Value Date Recorded Sex Assigned at Not on file Legal Sex Female 6:25 PM EDT Gender Identity Not on file Sexual Orientation Not on file documented as of this encounter Plan of Treatment Not on file documented as of this encounter Visit Diagnoses Not on filedocumented in this encounter Care Teams Node Js Developer Relationship Specialty Start Date End Date Antonio Campuzano MD [address] [place] [address] PCP - General 01/09/21 Madhu Martínez DMD [address] [facility], [address] [place] [address] Dentist Dental Store Operations Specialist 02/06/21 2 Tanya Cotton [employer] Dental Student Dental Store Operations Specialist 02/06/21 02/02/22 documented as of this encounter
--- OUTSIDE RECORDS SUMMARY | 2025-02-20 10:06 | XMS_ITS | Clinical Summary ---
Author Organization [facility] Address [address] [place] [address] Care Team Providers Care Vice President Of Procurement Name Role Phone Antonio Campuzano MD Primary Care Provider [phone] Family History Medical History Relation Name Comments Conversions - Other Father Alcohol addiction Liver disease Father Lung cancer Maternal Grandmother Breast cancer Mother Relation Name Status Comments Father Maternal Grandmother Mother Social History Tobacco Use Types Packs/Day Years Used Date Smoking Tobacco: Former Alcohol Use Standard Drinks/Week Comments Yes 0 (1 standard drink = 0.6 oz pur e alcohol) Comments Unknown Sex and Gender Information Value Date Recorded Sex Assigned at Not on file Legal Sex Female 6:25 PM EDT Gender Identity Not on file Sexual Orientation Not on file Last Filed Vital Signs Vital Sign Reading Time Taken Comments Blood Pressure - - Pulse - - Temperature - - Respiratory Rate - - Oxygen Saturation - - Inhaled Oxygen Concentration - - Weight 59.4 kg (131 lb) 11/05/2013 3:10 PM EDT Height 165.1 cm (5' 5 ) 11/05/2013 3:10 PM EDT Body Mass Index 21.8 11/05/2013 3:10 PM EDT Plan of Treatment Health Maintenance Due Date Last Done Comments Dental Oral Exam 1974 Dental Prophylaxis 1974 [facility]-Depression Screening 1974 [facility]-/Child/Adol SDOH Screenings 1974 [facility]- SDOH Screenings 1992 [facility]-Adult SDOH Screenings 1992 [facility]-DTaP,Tdap,and Td Vaccine s (1 - Tdap) 1993 [facility]-Hepatitis B Vaccines (1 of 3 - 19+ 3-dose series) 1993 [facility]-Pap Smear 1995 [facility]-Cervical Cancer Screening 2004 [facility]-HPV/Cotest 2004 CT Colonography 2019 Colonoscopy 2019 FIT-DNA 2019 FIT 2019 FOBT 2019 Sigmoidoscopy 2019 [facility]-Colorectal Cancer Screening 2019 Dental X-Ray: Bitewings 10/23/2021 10/22/2020 Dental X-Ray: Full Mouth 10/23/2023 10/22/2020 [id number] Vaccine ( - 20 24- season) 2024 [facility]-Pneumococcal Vaccine: 50 + Years (1 of 1 - PCV) 2024 [facility]-Zoster Vaccines (1 of 2) 2024 [facility]-Influenza Vaccine (Seas[place] n Ended) 2025 HPV Vaccines Aged Out No longer eligi ble based on patient's age to complete this topic [facility]-HIB Vaccines Aged Out No longer e ligible based on patient's age to complete this topic [facility]-Hepatitis A Vaccines Aged Out No longer eligible based on patient's age to complete this topic [facility]-IPV Vaccines Aged Out No longer e ligible based on patient's age to complete this topic [facility]-Rotavirus Vaccines Aged Out No lo nger eligible based on patient's age to complete this topic Procedures Procedure Name Priority Date/Time Associated Diagnosis Comments INTRAORAL - COMPLETE SERIES OF RADIOGRAPHIC IMAGES Routine 10/22/2020 12:00 AM EST from Last 3 Months or Most Recently Relevant to Health Maintenance Care Teams Vice President Of Procurement Relationship Specialty Start Date End Date Antonio Campuzano MD [address] [place] [address] PCP - General 01/09/21
== END 2025-02-18 23:59 | disposition home or self-care (01) ==
LOC: LAB.DROPOF 02-20 10:01
PROVIDERS: PCP Nurse Practitioner; Visit Provider Nurse Practitioner
DX: K21.9 Gastro-esophageal reflux disease without esophagitis (principal); F41.9 Anxiety disorder, unspecified; R53.83 Other fatigue; Z13.1 Encounter for screening for diabetes mellitus; Z13.220 Encounter for screening for lipoid disorders; Z13.0 Encounter for screening for diseases of the blood and blood-forming organs and certain disorders involving the immune mechanism
CPT/HCPCS: 80053; 80061; 82306; 82607; 83036; 84443; 85025; 86803; 87340; 87389

== ENCOUNTER 2025-04-01 11:02 | Outpatient (CLI) | payer BC, SELFPAY ==
--- OUTSIDE RECORDS SUMMARY | 2025-04-01 11:05 | XMS_ITS | Clinical Summary ---
Author Organization Healthcare Address [address] [place] [address] Care Team Providers Care Disabilities Services Officer Name Role Phone Antonio Campuzano MD Primary Care Provider [phone] Family History Medical History Relation Name Comments [...] Health Maintenance Due Date Last Done Comments [facility]-Depression Screening 1974 [facility]-Infant/Child/Adol SDOH Screenings 1974 [facility]- SDOH Screenings 1992 [facility]-Adult SDOH Screenings 1992 [facility]-DTaP,Tdap,and Td Vaccine s (1 - Tdap) 1993 [facility]-Hepatitis B Vaccines (1 of 3 - 19+ 3-dose series) 1993 [facility]-Pap Smear 1995 [facility]-Cervical Cancer Screening 2004 [facility]-HPV/Cotest 2004 CT Colonography 2019 Colonoscopy 2019 FIT-DNA 2019 FIT 2019 FOBT 2019 Sigmoidoscopy 2019 [facility]-Colorectal Cancer Screening 2019 [id number] Vaccine (1 - 20 24-25 season) 2024 [facility]-Pneumococcal Vaccine: 50 + Years (1 of 1 - PCV) 2024 [facility]-Zoster Vaccines (1 of 2) 2024 [facility]-Influenza Vaccine (#1) 2025 HPV Vaccines Aged Out No longer [...] on patient's age to complete this topic Care Teams Disabilities Services Officer Relationship Specialty Start Date End Date Antonio Campuzano MD [address] [place] [address] PCP - General 01/09/21
--- OUTSIDE RECORDS SUMMARY | 2025-04-01 11:05 | XMS_ITS | Encounter Summary ---
Author Organization [facility] [place] Address [address] [place] [address] Care Team Providers Care Manager Ob Name Role Phone Antonio Campuzano MD Primary Care Provider [phone] Madhu Martínez DMD Unavailable [phone] Tanya Cotton Unavailable Unavailable Encounter Details Date Type Department Care Team ([facility] st Contact Info) Description 12/04/2020 Abstract [facility] [address] [place] [address] Dental, Provider, DDS [facility] [place], [place] [address] Social History Tobacco Use Types Packs/Day Years [...] on filedocumented in this encounter Care Teams Manager Ob Relationship Specialty Start Date End Date Antonio Campuzano MD [address] [place] [address] PCP - General 01/09/21 Madhu Martínez DMD [address] [facility], [address] [place] [address] Dentist Dental Supervisor [employer] 02/06/21 2 Tanya Cotton [employer] 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
== END 2025-04-01 23:59 | disposition home or self-care (01) ==
LOC: RAD 11:03
PROVIDERS: PCP Nurse Practitioner; Visit Provider Nurse Practitioner
DX: Z12.31 Encounter for screening mammogram for malignant neoplasm of breast (principal); Z80.3 Family history of malignant neoplasm of breast
CPT/HCPCS: 77063; 77067